=== PATIENT | female | born 1980 | race Caucasian/White ===

== ENCOUNTER → 2016-11-09 | Outpatient (CLI) | payer MEDICAID ==
--- NOTE | 2016-11-09 17:57 | RADIOLOGY REPORT (SQ) ---
EXAM DESCRIPTION: U/S [id number] TRNABD 1GES W/ODOP COMPLETED DATE/TIME: 11/09/2016 5:20 pm REASON FOR STUDY: ENCOUNTER FOR SUPERVISON OF NORMAL FIRST , FIRST TRIMESTER Z34.01 ENCNTR FOR SUPRVSN OF NORMAL FIRST PREG, FIRST TRIMES COMPARISON: None. TECHNIQUE: Transabdominal static and realtime grayscale images acquired of the pelvis. Additional se lected spectral and color Doppler images recorded. All images stored on PACs. CG: Not available. LIMITATIONS: None. FINDINGS: FETUS: Living intrauterine . EGA: 12 weeks 4 days ROSALIO: 05/20/2017 FHR: 157 beats per minute. SUBCHORIONIC BLEED: No SIZE OF BLEED: Not applicable. UTERUS: No masses, no anomalies. 12.1 x 8.8 x 7.6 cm. CERVICAL LENGTH: 3.7 cm. Closed. RIGHT ADNEXA: Right ovary measured 5.5 x 4.7 x 3.8 cm. There is a 3.9 x 4.2 x 3.3 cm cyst. No adnexal free fluid. No adnexal masses. LEFT ADNEXA: Ovary not seen. No adnexal free fluid. No adnexal masses. FREE FLUID: None. OTHER: No other significant finding. IMPRESSION: 1. Live intrauterine gestation of 12 weeks 4 days with an estimated date of delivery of 05/20/2017. 2. There is a 3.9 x 4.2 x 3.3 mm right ovarian cyst. Trimester of : First - 0 to 13 weeks. TECHNICAL DOCUMENTATION: JOB ID: [id number] [employer]- All Rights Reserved
== END ==
LOC: RAD 15:11
PROVIDERS: ATTEND Nurse Practitioner Women's Health
DX: Z34.01 Encounter for supervision of normal first pregnancy, first trimester (principal)
CPT/HCPCS: 76801

== ENCOUNTER 2017-04-01 12:04 | Emergency (ER) | payer MEDICAID ==
--- NOTE | 2017-04-01 12:32 | ER Document Report ---
ED Medical Screen (RME) - General Chief Complaint: Lower Abdominal Pain Stated Complaint: LEFT LOWER SIDE PAIN Time Seen by Provider: 04/01/17 12:23 TRAVEL OUTSIDE OF THE [place] IN LAST 30 DAYS: No - Related Data Allergies/Adverse Reactions: No Known Allergies Allergy (Verified 04/01/17 12:09) Physical Exam - Vital signs Vitals: Temp Pulse Resp BP Pulse Ox 98.2 F 75 18 114/54 L 99 04/01/17 12:13 04/01/17 12:13 04/01/17 12:13 04/01/17 12:13 04/01/17 12:13 Course - Vital Signs Vital signs: Temp Pulse Resp BP Pulse Ox 98.2 F 75 18 114/54 L 99 04/01/17 12:13 04/01/17 12:13 04/01/17 12:13 04/01/17 12:13 04/01/17 12:13
--- NOTE | 2017-04-01 12:35 | ER Document Report ---
ED General - General Chief Complaint: Lower Abdominal Pain Stated Complaint: LEFT LOWER SIDE PAIN Time Seen by Provider: 04/01/17 12:23 TRAVEL OUTSIDE OF THE [place] IN LAST 30 DAYS: No - HPI Patient complains to provider of: Left-sided abdominal pain Notes: 3 day history of sharp reproducible left-sided abdominal pain. Patient thinks she twisted a muscle at work. It is exacerbated with her turning to the right. It is 8/10 sharp in a chewable reproducible with palpation. Denies any nausea , vomiting, diarrhea, dysuria. Patient is still feeling the baby move a great deal. Patient denies any vaginal discharge or back pain. - Related Data Allergies/Adverse Reactions: No Known Allergies Allergy (Verified 04/01/17 12:09) Home Medications: Current Home Medications Vit Calc,Iron,Folic [ Vitamins] 1 tab PO DAILY 04/01/17 [ History] Past Medical History - Social History Smoking Status: Former Smoker Chew tobacco use (# tins/day): No Frequency of alcohol use: None Drug Abuse: None Family History: None Patient has suicidal ideation: No Patient has homicidal ideation: No Renal/ Medical History: Denies: Hx Peritoneal Dialysis Review of Systems - Review of Systems Gastrointestinal: Abdominal pain Physical Exam - Vital signs Vitals: Temp Pulse Resp BP Pulse Ox 98.2 F 75 18 114/54 L 99 04/01/17 12:13 04/01/17 12:13 04/01/17 12:13 04/01/17 12:13 04/01/17 12:13 Interpretation: Normal - General General appearance: Appears well, Alert - HEENT Head: Normocephalic, Atraumatic Eyes: Normal Pupils: PERRL - Respiratory Respiratory status: No respiratory distress Chest status: Nontender Breath sounds: Normal Chest palpation: Normal - Cardiovascular Rhythm: Regular Heart sounds: Normal auscultation Murmur: No - Abdominal Inspection: Normal Distension: No distension Bowel sounds: Normal Tenderness: Tender Organomegaly: No organomegaly Notes: Small bruise located over left side of abdomen. Patient does not recall hitting her stomach. - Back Back: Normal, Nontender - Extremities General upper extremity: Normal inspection, Nontender, Normal color, Normal ROM , Normal temperature General lower extremity: Normal inspection, Nontender, Normal color, Normal ROM , Normal temperature, Normal weight bearing. No: Goran's sign - Neurological Neuro grossly intact: Yes Cognition: Normal Orientation: AAOx4 [place] Coma Scale Eye Opening: Spontaneous [place] Coma Scale Verbal: Oriented [place] Coma Scale Motor: Obeys Commands [place] Coma Scale Total: 15 Speech: Normal Motor strength normal: LUE, RUE, LLE, RLE Sensory: Normal - Psychological Associated symptoms: Normal affect, Normal mood - Skin Skin Temperature: Warm Skin Moisture: Dry Skin Color: Normal Course - Re-evaluation Re-evalutation: 04/01/17 13:25 Well-appearing female presents with apparent musculoskeletal pain. Urine shows no signs of infection, contaminated sample. Will be sent for urine culture. Patient's heart tones recorded at 141. - Vital Signs Vital signs: Temp Pulse Resp BP Pulse Ox 97.6 F 70 18 119/66 99 04/01/17 13:50 04/01/17 13:50 04/01/17 13:50 04/01/17 13:50 04/01/17 13:50 - Laboratory Laboratory results interpreted by me: 04/01/17 13:02 Urine Urobilinogen 2.0 H Ur Leukocyte Esterase LARGE H Discharge - Discharge Clinical Impression: Muscle strain Condition: Stable Disposition: HOME, SELF-CARE Instructions: Muscle Strain ([facility]) Additional Instructions: call your SUPER[employer] today and see them tomorrow Referrals: ARMANDO BALBUENA MD [Primary Care Provider] - Follow up as needed
[2017-04-01 13:21] LABS: APPEARANCE,URINE CLOUDY; BILIRUBIN,URINE NEGATIVE (NEGATIVE); COLOR,URINE YELLOW; GLUCOSE, URINE NEGATIVE (NEGATIVE); KETONES,URINE NEGATIVE (NEGATIVE); LEUKOCYTE ESTERASE,URINE LARGE (NEGATIVE); NITRITE,URINE NEGATIVE (NEGATIVE); PROTEIN,URINE NEGATIVE (NEGATIVE)
[2017-04-01 13:53] VITALS: BP 119/66
== END 2017-04-01 13:51 | disposition home or self-care (01) ==
LOC: ER 12:04
DX: O9A.219 Injury, poisoning and certain other consequences of external causes complicating pregnancy, unspecified trimester (principal); T14.8XXA Other injury of unspecified body region, initial encounter; S30.1XXA Contusion of abdominal wall, initial encounter; R10.30 Lower abdominal pain, unspecified; X58.XXXA Exposure to other specified factors, initial encounter; Z3A.00 Weeks of gestation of pregnancy not specified
CPT/HCPCS: 81001; 99284

== ENCOUNTER 2017-04-29 10:22 | Outpatient (CLI) | payer MEDICAID | END 2017-04-29 11:08 | disposition home or self-care (01) | LOC: LC 10:22 | PROVIDERS: ATTEND Obstetrics & Gynecology Gynecology | PROC: 4A1HXCZ Monitoring of Products of Conception, Cardiac Rate, External Approach (ICD-10-PCS; principal; 2017-04-29) | DX: O36.5930 Maternal care for other known or suspected poor fetal growth, third trimester, not applicable or unspecified (principal); O09.523 Supervision of elderly multigravida, third trimester; Z3A.37 37 weeks gestation of pregnancy | CPT/HCPCS: 59025 ==

== ENCOUNTER 2017-05-14 12:15 | Inpatient (IN) | payer MEDICAID ==
[2017-05-14 12:56] LABS: APPEARANCE,URINE CLEAR; BILIRUBIN,URINE NEGATIVE (NEGATIVE); COLOR,URINE YELLOW; GLUCOSE, URINE NEGATIVE (NEGATIVE); KETONES,URINE NEGATIVE (NEGATIVE); LEUKOCYTE ESTERASE,URINE NEGATIVE (NEGATIVE); NITRITE,URINE NEGATIVE (NEGATIVE); PROTEIN,URINE NEGATIVE (NEGATIVE); URINE SPECIFIC GRAVITY 1.011
[2017-05-14] MEDS ORDERED: OXYTOCIN/NORMAL SALINE 20 UNIT/1,000 ML RTUINJ IV PRN ×2 (13:09→22:12)
[2017-05-14] MEDS ORDERED: RINGERS SOLUTION,LACTATED 300 ML IV ONE ×2 (13:09→13:12)
[2017-05-14] MEDS ORDERED: RINGERS SOLUTION,LACTATED 1,000 ML IV PRN (13:12)
[2017-05-14 13:14] LABS: URINE AMPHETAMINES SCREEN NEGATIVE; URINE BARBITURATES SCREEN NEGATIVE; URINE BENZODIAZEPINES SCREEN NEGATIVE; URINE COCAINE SCREEN NEGATIVE; URINE MARIJUANA (THC) SCREEN NEGATIVE; URINE METHADONE SCREEN NEGATIVE; URINE PHENCYCLIDINE SCREEN NEGATIVE
[2017-05-14 13:40] LABS: AMNISURE (ROM) NEGATIVE (NEGATIVE)
[2017-05-14 14:19] LABS: ABSOLUTE LYMPHOCYTES (AUTO) 1.7 10^3/uL (0.5-4.7); ABSOLUTE MONOCYTES (AUTO) 0.8 10^3/uL (0.1-1.4); ABSOLUTE NEUT (AUTO) 9.4 10^3/uL (1.7-8.2); BASOPHILS % (AUTO) 0.1 % (0-2); EOSINOPHILS % (AUTO) 0.4 % (0-6); HEMATOCRIT 37.7 % (36.0-47.0); HEMOGLOBIN 12.8 g/dL (12.0-15.5); LYMPHOCYTES % (AUTO) 14.3 % (13-45); MEAN CORPUSCULAR HEMOGLOBIN 30.4 pg (27.0-33.4); MEAN CORPUSCULAR VOLUME 90 fl (80-97); MONOCYTES % (AUTO) 6.9 % (3-13); PLATELET COUNT 265 10^3/uL (150-450); RED BLOOD COUNT 4.21 10^6/uL (3.72-5.28); RED CELL DISTRIBUTION WIDTH 13.3 % (11.5-14.0); SEGMENTED NEUTROPHILS % (AUTO) 78.3 % (42-78); TOTAL CELLS COUNTED % (AUTO) 100 %
--- NOTE | 2017-05-14 16:15 | L&D Progress Notes ---
PROGRESS NOTES Datetime Report Generated by CPN: 05/14/2017 16:14 PROGRESS NOTE Impression: Normal Progression of Labor; Reassuring Heart Rate Procedures: Artificial ROM; Sterile Vag Exam Plan: Continue Present Management; Induction Vital Signs : Reviewed Comment: Pt having more ctx, coping well AROM, clear Will start pitocin Pt may have epidural prn VAGINAL EXAM Dilatation: 2 Effacement: 25 Station: -3 Contractions: rare MEMBRANES Membranes: Ruptured Membranes: Bulging Amniotic Fluid Color: Clear FETUS A FHR - Baseline: 135 Monitoring: External US Variability: Moderate 6-25bpm Accelerations: 15X15 Decelerations: None FHR Category: Category I Estimated Weight (gm): 2400 Presentation: Vertex SIGNATURE SIGNATURE: [id number] Assignment: Izabela Cantu MD Signature: with User ID: [email or web address] : with User ID: [email or web address]
[2017-05-14] MEDS ORDERED: OXYTOCIN/NORMAL SALINE 0 UNIT/0 ML RTUINJ ONE (16:20)
[2017-05-14] MEDS ORDERED: OXYTOCIN/NORMAL SALINE 20 UNIT/1,000 ML RTUINJ ONE (16:21)
[2017-05-14] MEDS ORDERED: MISOPROSTOL 0.2 MG TABLET ONE (16:21)
[2017-05-14] MEDS ORDERED: LIDOCAINE 1% INJ-PF (10 MG/ML) 30 ML SDV ONE (16:21)
[2017-05-14] MEDS: RINGERS SOLUTION,LACTATED 1,000 ML IV PRN ×3 (16:29→20:22)
[2017-05-14] MEDS ORDERED: FENTANYL CITRATE INJ/PF 100 MCG/2 ML AMPUL ONE (18:15)
[2017-05-14] MEDS ORDERED: PHENYLEPHRINE HCL INJ/PF 10 MG/1 ML SDV ONE (18:16)
[2017-05-14] MEDS ORDERED: EPHEDRINE SULFATE INJ 50 MG/1 ML AMPULE ONE (18:16)
[2017-05-14] MEDS ORDERED: FENTANYL/BUPIVACAINE/NS/PF 200 MCG/100 ML RTUINJ EPI ONE (18:16)
[2017-05-14] MEDS ORDERED: BUPIVACAINE HCL 0.25 % INJ/PF (2.5 MG/1 ML) 30 ML VIAL ONE (18:16)
[2017-05-14] MEDS ORDERED: MISOPROSTOL 0.2 MG TABLET PR ONE (22:12)
[2017-05-14] MEDS ORDERED: ACETAMINOPHEN 325 MG TABLET PO PRN (22:12)
[2017-05-14] MEDS ORDERED: NA PHOS,M-B/NA PHOS,DI-BA (ADULT) 133 ML ENEMA PR PRN (22:12)
[2017-05-14] MEDS ORDERED: PROMETHAZINE HCL 25 MG TABLET PO PRN (22:12)
[2017-05-14] MEDS ORDERED: BENZOCAINE/MENTHOL AEROSOL SPRAY 56 ML TOP PRN (22:12)
[2017-05-14] MEDS ORDERED: ACETAMINOPHEN WITH CODEINE #3 TABLET PO PRN ×2 (22:12)
[2017-05-14] MEDS ORDERED: DIPHENHYDRAMINE HCL 25 MG CAPSULE PO PRN (22:12)
[2017-05-14] MEDS ORDERED: DIPH/PERTUSS(ACELL)/TETANUS VAC/PF 0.5 ML SYR (>=10YO) IM PRN (22:12)
[2017-05-14] MEDS ORDERED: PROMETHAZINE HCL 25 MG SUPP.RECT PR PRN (22:12)
[2017-05-14] MEDS ORDERED: PROMETHAZINE HCL INJ 25 MG/1 ML VIAL IV PRN (22:12)
[2017-05-14] MEDS ORDERED: MAGNESIUM HYDROXIDE SUSP 30 ML UDCUP PO PRN (22:12)
[2017-05-14] MEDS ORDERED: DIBUCAINE 1% OINTMENT 28 GM TP PRN (22:12)
[2017-05-14] MEDS ORDERED: GLYCERIN/WITCH HAZEL LEAF 1 EACH MED..PAD TP PRN (22:12)
[2017-05-14] MEDS ORDERED: MEASLES,MUMPS&RUBELLA VACC/PF 0.5 ML VIAL SUBCUT PRN (22:12)
[2017-05-14] MEDS ORDERED: PSEUDOEPHEDRINE HCL 30 MG TABLET PO PRN (22:12)
[2017-05-14] MEDS ORDERED: ZOLPIDEM TARTRATE 5 MG TABLET PO PRN (22:12)
--- NOTE | 2017-05-14 22:37 | Delivery Summary ---
Del Sum A-C Datetime Report Generated by CPN: 05/14/2017 22:36 DELIVERY PERSONNEL DELIVERY PERSONNEL: [id number] Delivery Doctor:: Izabela Cantu MD Labor and Delivery Nurse:: Opal Rosales RNrecreation worker Nurse:: Greta Recinos RN Felt Checker/PERSONNEL ADMINISTRATOR: Joycelyn Rosegerald, ST MATERNAL INFORMATION Delivery Anesthesia: Epidural Medications After Delivery: Pitocin Drip 20 Units/1000ml NSS; Other-Please Comment Meds After Delivery Comment: Cytotec 1000 mcg [place] Estimated Blood Loss (ml): 300 Maternal Complications: Other Other Maternal Complications: iugr 7th percentile Provider Comments: VFI delivered in Direct OA presentation. No nuchal cord. Shoulders and body delivered without difficulty. Cord doubly clamped and cut and to maternal abdomen for NRP. Placenta delivered intact. Perineal laceration repaired in usual fashion. FF at U-1. Good hemostasis. Mother and baby stable upon provider leaving the room. Apgars 8/9. Weight pending. LABOR SUMMARY EDC: 05/20/2017 00:00 No. Babies in Womb: 1 Attempted: No Labor Anesthesia: Epidural LABOR INFORMATION Reason for Induction: Intrauterine Growth Retardation Onset of Labor: 05/14/2017 16:08 Complete Dilatation: 05/14/2017 21:00 Oxytocin: Induction Group B Beta Strep: Negative Antibiotics # of Doses: 0 Antibiotics Time of Last Dose: n/a Name of Antibiotic Given: n/a Steroids Given: None Reason Steroids Not Administered: Not Applicable MEMBRANES Membranes Rupture Method: Artificial Rupture of Membranes: 05/14/2017 16:08 Length of Rupture (hr): 5.57 Amniotic Fluid Color: Clear Amniotic Fluid Amount: Small Amniotic Fluid Odor: Normal STAGES OF LABOR Stage 1 hr: 4 Stage 1 min: 52 Stage 2 hr: 0 Stage 2 min: 42 Stage 3 hr: 0 Stage 3 min: 3 Total Time in Labor hr: 5 Total Time in Labor min: 37 VAGINAL DELIVERY Episiotomy: None Laceration #1: Perineal Laceration Extension #1: First Degree Laceration #2: Vaginal Laceration Extension #2: N/A Laceration Repair: Yes Laceration Repair Note: Left labial laceration and 1st degree midline laceration repaired in usual fashion. Sponge Count Correct: Yes Sharps Count Correct: Yes CSECTION DELIVERY Primary Indication: N/A Secondary Indication: N/A CSection Incidence: N/A Labor: N/A Elective: N/A CSection Incision: N/A BABY A INFORMATION Infant Delivery Date/Time: 05/14/2017 21:42 Method of Delivery: Vaginal Born in Route : No : N/A Forceps: N/A Vacuum Extraction: N/A Shoulder Dystocia : No PRESENTATION/POSITION BABY A Presentation: Cephalic Cephalic Presentation: Vertex Vertex Position: OA Breech Presentation: N/A PLACENTA INFORMATION BABY A Placenta Delivery Time : 05/14/2017 21:45 Placenta Method of Delivery: Spontaneous Placenta Status: Delivered SCORES BABY A Heart Rate 1 min: >100 bpm Resp Effort 1 min: Good Cry Reflex Irritability 1 min: Cough or Sneeze or Pulls Away Muscle Tone 1 min: Active Motion Color 1 min: Blue/Pale Resuscitation Effort 1 min: Tactile Stimulation SCORE 1 MIN: 8 Heart Rate 5 min: >100 bpm Resp Effort 5 min: Good Cry Reflex Irritability 5 min: Cough or Sneeze or Pulls Away Muscle Tone 5 min: Active Motion Color 5 min: Body Mina, Extremities Blue Resuscitation Effort 5 min: Tactile Stimulation SCORE 5 MIN: 9 INFANT INFORMATION BABY A Gestational Age at Delivery: 39.1 Gestational Status: Full Term- 39- 40.6 Weeks Infant Outcome : Liveborn Condition : Stable Infant Sex: Female IDENTIFICATION BABY A Infant Verification Date/Time: 05/14/2017 21:55 ID Band Number: [id number] Mother's Name Verified: Yes Infant RN Verifying Infant: Shayla RecinosLaure RN Additional Verifying Personnel: Kayla Griggs CNA WEIGHT/LENGTH BABY A Infant Birthweight (gm): 2900 Infant Weight (lb): 6 Weight (oz): 6 Length (in): 19.50 Length (cm): 49.53 CORD INFORMATION BABY A No. Cord Vessels: 3 Nuchal Cord : N/A Cord Blood Taken: Yes-For Eval (Mom's Blood Type - or O+) Suction: Mouth ASSESSMENT BABY A Complications: None Physical Findings at Delivery: Within Normal Limits Infant Respirations: Appears Normal Skin to Skin: Yes Assistant Teacher Primary/ALS Called : No Care By: AIlya, Rn Transferred To: Remains with Mother BABY B INFORMATION : N/A SIGNATURES Signature: with User ID: [email or web address]
--- NOTE | 2017-05-14 23:49 | Admission Physical ---
Datetime Report Generated by CPN: 05/14/2017 23:49 CURRENT ADMISSION Hx Assessment: The History has been Reviewed and is Current Chief Complaint: Sent from OB Office for Evaluation and Treatment - Please Specify Indication for Induction: IUGR Indication for Induction: Term, Intrauterine ; No Active Labor; Induction of Labor Indication for Induction- Other: low elyssa Admit Plan: Admit to Unit; Initiate Labor Induction Protocol ALLERGIES Medication Allergies: No Medication Allergies: No Known Allergies (04/29/2017) Medication Allergies: No Known Allergies (04/01/2017) Latex: No Latex Allergies Food Allergies: N/A Environmental Allergies: N/A OBSTETRICAL HISTORY EDC: 05/20/2017 00:00 : 1 Para: 0 Gestational Diabetes: No Rh Sensitization: No Incompetent Cervix: No MADDY: No Infertility: No ART Treatment: No Uterine Anomaly: No IUGR: No Hx Previous C/S: No Macrosomia: No Hx Loss/Stillborn: No PIH: No Hx : No Placenta Previa/Abruption: No Depression/PP Depression: No PTL/PROM: No Post Hemorrhage: No Current Procedures: Ultrasound; NST Obstetrical History Comments: G1 - Current SEE RECORDS Alcohol: No Marijuana : No Cocaine: No Other Illicit Drugs: No Cigarettes: Former Smoker. [id number] Advised to Stop: Yes Cigarette Comments: Stopped once she found out she was MEDICAL HISTORY Diabetes: No Blood Transfusion: No Pulmonary Disease (Asthma, TB): No Breast Disease: No Hypertension: No Tile Shader Surgery: No Heart Disease: No Hosp/Surgery: No Autoimmune Disorder: No Anesthetic Complications: No Kidney Disease: No Abnormal Pap Smear: No Neuro/Epilepsy: No Psychiatric Disorders: No Other Medical Diseases: No Hepatitis/Liver Disease: No Significant Family History: No Varicosities/Phlebitis: No Trauma/Violence : No Thyroid Dysfunction: No INFECTIOUS HISTORY Gonorrhea: No Genital Herpes: No Chlamydia: No Tuberculosis: No Syphilis: No Hepatitis: No HIV/AIDS Exposure: No Rash or Viral Illness: No HPV: No PHYSICAL EXAM General: Normal HEENT: Normal Neurologic: Normal Thyroid: Normal Heart: Normal Lungs: Normal Breast: Normal Back: Normal Abdomen: Normal Genitourinary Exam: Normal Extremities: Normal DTRs: Normal Pelvic Type: Adequate Vital Signs: Reviewed VAGINAL EXAM Dilatation: 2 Effacement: 25 Station: -3 Contraction Comments: rare MEMBRANES Membranes: Ruptured Membranes: Bulging Amniotic Fluid Color: Clear FETUS A EGA: 39.1 Monitoring: External US FHR- Baseline: 135 Variability: Moderate 6-25bpm Accelerations: 15X15 Decelerations: None FHR Category: Category I Estimated Weight (gm): 2400 Presentation: Vertex Admit Comment: Admit to L _ D, denies leaking, bleeding, states active baby, rare ctx. ELYSSA 5 today in the office, amnisure pending. Growth 10% AMA, care started at [facility], RH negative Plan for seo bulb and pitocin. PLANS FOR LABOR AND DELIVERY Labor and Delivery: None Pain Management: Epidural Feeding Preference: Breast Benefit of Breast Feed Discussed: Yes Circumcision: N/A INFORMED CONSENT Assignment: Izabela Cantu MD Signature: with User ID: [email or web address] : with User ID: [email or web address]
[2017-05-15] MEDS: IBUPROFEN 800 MG TABLET PO SCH ×3 (05:48→22:48)
[2017-05-15 08:10] LABS: HEMATOCRIT 32.6 % (36.0-47.0); HEMOGLOBIN 11.2 g/dL (12.0-15.5); MEAN CORPUSCULAR HEMOGLOBIN 30.7 pg (27.0-33.4); MEAN CORPUSCULAR HGB CONC 34.3 g/dL (32.0-36.0); MEAN CORPUSCULAR VOLUME 90 fl (80-97); PLATELET COUNT 210 10^3/uL (150-450); RED BLOOD COUNT 3.64 10^6/uL (3.72-5.28); RED CELL DISTRIBUTION WIDTH 13.2 % (11.5-14.0); WHITE BLOOD COUNT 17.1 10^3/uL (4.0-10.5)
--- NOTE | 2017-05-15 08:43 | PDOC PROGRESS REPORT ---
Subjective-OB Progress Note for:: 05/15/17 Subjective: pp day #1 s/p Lochia is stable, pain well controlled, seo in situ d/t urinary retention, bonding well and baby. Physical Exam (OB) Vital Signs: Temp Pulse Resp BP Pulse Ox 98.2 F 71 16 114/59 L 99 05/14/17 23:56 05/14/17 23:56 05/14/17 23:56 05/14/17 23:56 05/14/17 23:56 Intake & Output 05/14/17 05/15/17 05/16/17 06:59 06:59 06:59 Intake Total 2000 Output Total 2650 Balance -650 Weight 87.4 kg - Lochia Lochia Amount: Small 10-25 ml Lochia Color: Rubra/Red - Abdomen Description: Soft, Round Hernia Present: No Fundal Description: Firm, Midline Fundal Height: u/u - u/2 Objective-Diagnostic Laboratory: 05/15/17 07:34 05/14/17 05/14/17 05/14/17 12:26 13:47 13:47 WBC 12.0 H RBC 4.21 Hgb 12.8 Hct 37.7 MCV 90 MCH 30.4 MCHC 34.0 RDW 13.3 Plt Count 265 Seg Neutrophils % 78.3 H Lymphocytes % 14.3 Monocytes % 6.9 Eosinophils % 0.4 Basophils % 0.1 Absolute Neutrophils 9.4 H Absolute Lymphocytes 1.7 Absolute Monocytes 0.8 Absolute Eosinophils 0.0 Absolute Basophils 0.0 Urine Color YELLOW Urine Appearance CLEAR Urine pH 7.0 Ur Specific [place] 1.011 Urine Protein NEGATIVE Urine Glucose (UA) NEGATIVE Urine Ketones NEGATIVE Urine Blood SMALL H Urine Nitrite NEGATIVE Ur Leukocyte Esterase NEGATIVE Urine WBC (Auto) 1 Urine RBC (Auto) 0 Blood Type O NEGATIVE Antibody Screen POSITIVE 05/15/17 07:34 WBC 17.1 H RBC 3.64 L Hgb 11.2 L Hct 32.6 L MCV 90 MCH 30.7 MCHC 34.3 RDW 13.2 Plt Count 210 Seg Neutrophils % Lymphocytes % Monocytes % Eosinophils % Basophils % Absolute Neutrophils Absolute Lymphocytes Absolute Monocytes Absolute Eosinophils Absolute Basophils Urine Color Urine Appearance Urine pH Ur Specific [place] Urine Protein Urine Glucose (UA) Urine Ketones Urine Blood Urine Nitrite Ur Leukocyte Esterase Urine WBC (Auto) Urine RBC (Auto) Blood Type Antibody Screen Assessment and Plan(PN) - Assessment and Plan (1) First degree laceration of perineum, delivered, current hospitalization Is this a current diagnosis for this admission?: Yes Plan: routine pericare (2) Intrauterine growth restriction (IUGR) affecting care of mother Qualifiers: Fetus number: single or unspecified fetus Trimester: third trimester Qualified Code(s): O36.5930 - Maternal care for other known or suspected poor growth, third trimester, not applicable or unspecified Is this a current diagnosis for this admission?: Yes Plan: delivered appropriate peds follow up (3) Obstetric labial laceration, delivered, current hospitalization Is this a current diagnosis for this admission?: Yes Plan: kian care (4) Urinary retention Is this a current diagnosis for this admission?: Yes Plan: seo to be d/c tomorrow morning (5) Vaginal delivery Is this a current diagnosis for this admission?: Yes Plan: routine pp care - Time Spent with Patient Time with patient: Less than 15 minutes Critical Time spent with patient: Less than 15 minutes Medications reviewed and adjusted accordingly: Yes - Disposition Anticipated Discharge: Home Within: within 24 hours
[2017-05-15] MEDS: SENNOSIDES/DOCUSATE 8.6-50 MG 1 EACH TABLET PO SCH (10:35)
[2017-05-15] MEDS: FERROUS SULFATE 325 MG TABLET PO SCH ×2 (10:36→18:35)
[2017-05-15] MEDS: PRENATAL VITAMIN W DHA CAPSULE PO SCH (10:36)
[2017-05-15] MEDS: FAMOTIDINE 20 MG TABLET PO SCH ×2 (10:36→22:48)
[2017-05-15] MEDS: DOCUSATE SODIUM 100 MG CAPSULE PO SCH ×2 (10:36→18:34)
[2017-05-15 21:33] VITALS: BP 123/67
[2017-05-16] MEDS: IBUPROFEN 800 MG TABLET PO SCH (05:33)
--- NOTE | 2017-05-16 08:50 | PDOC PROGRESS REPORT ---
Subjective-OB Progress Note for:: 05/16/17 Subjective: PP day # 2 Pt is doing well, seo just removed, due to void, lochia is stable, pain well controlled, bonding well with baby, pt would like to go home. Physical Exam (OB) Vital Signs: Temp Pulse Resp BP Pulse Ox 98.3 F 87 16 123/67 98 05/15/17 20:10 05/15/17 20:10 05/15/17 20:10 05/15/17 20:10 05/15/17 20:10 Intake & Output 05/15/17 05/16/17 05/17/17 06:59 06:59 06:59 Intake Total 2000 1000 Output Total 2650 3550 Balance -650 -2550 Weight 87.4 kg - PIH/Pre-Eclampsia DTR's: 1 + Clonus: Negative Headache: Absent Epigastric Pain: No Visual Changes: No - Lochia Lochia Amount: Small 10-25 ml Lochia Color: Rubra/Red - Abdomen Description: Soft, Round Hernia Present: No Fundal Description: Firm, Midline Fundal Height: u/u - u/2 Objective-Diagnostic Laboratory: 05/15/17 07:34 05/15/17 07:34 Blood Type O NEGATIVE Assessment and Plan(PN) - Assessment and Plan (1) First degree laceration of perineum, delivered, current hospitalization Is this a current diagnosis for this admission?: Yes Plan: routine pp care (2) Intrauterine growth restriction (IUGR) affecting care of mother Qualifiers: Fetus number: single or unspecified fetus Trimester: third trimester Qualified Code(s): O36.5930 - Maternal care for other known or suspected poor growth, third trimester, not applicable or unspecified Is this a current diagnosis for this admission?: Yes Plan: n/a (3) Obstetric labial laceration, delivered, current hospitalization Is this a current diagnosis for this admission?: Yes Plan: routine pp care (4) Urinary retention Is this a current diagnosis for this admission?: Yes Plan: seo removed d/t void (5) Vaginal delivery Is this a current diagnosis for this admission?: Yes Plan: may cancel d/c if pt is unable to void - Time Spent with Patient Time with patient: Less than 15 minutes Critical Time spent with patient: Less than 15 minutes Medications reviewed and adjusted accordingly: Yes - Disposition Anticipated Discharge: Home Within: within 24 hours
--- NOTE | 2017-05-16 08:55 | PDOC DISCHARGE SUMMARY ---
Final Diagnosis Discharge Date: 05/16/17 - Final Diagnosis (1) First degree laceration of perineum, delivered, current hospitalization Is this a current diagnosis for this admission?: Yes (2) Intrauterine growth restriction (IUGR) affecting care of mother Is this a current diagnosis for this admission?: Yes (3) Obstetric labial laceration, delivered, current hospitalization Is this a current diagnosis for this admission?: Yes (4) Urinary retention Is this a current diagnosis for this admission?: Yes (5) Vaginal delivery Is this a current diagnosis for this admission?: Yes Discharge Data - Discharge Medication Prescriptions: Acetaminophen with Codeine [Tylenol #3 Tablet] 2 each PO Q4HP PRN #14 tablet PRN Reason: Docusate Sodium [Colace 100 mg Capsule] 100 mg PO BID #60 capsule Ibuprofen [Motrin 800 mg Tablet] 800 mg PO Q8 #60 tablet Home Medications: Vit Calc,Iron,Folic [ Vitamins] 1 tab PO DAILY 04/01/17 Acetaminophen with Codeine [Tylenol #3 Tablet] 2 each PO Q4HP PRN #14 tablet Docusate Sodium [Colace 100 mg Capsule] 100 mg PO BID #60 capsule 05/16/17 Ibuprofen [Motrin 800 mg Tablet] 800 mg PO Q8 #60 tablet 05/16/17 Gestational Age: 39.1 Reason(s) for Admission: Induction of Labor, Other - iugr 7% Procedures: NST Intrapartum Procedure(s): Spontaneous Vaginal Delivery Complication(s): Laceration-Labial, Other - urinary retention - Diagnosis Test Laboratory: Temp Pulse Resp BP Pulse Ox 98.3 F 87 16 123/67 98 05/15/17 20:10 05/15/17 20:10 05/15/17 20:10 05/15/17 20:10 05/15/17 20:10 05/14/17 05/14/17 05/15/17 12:26 13:47 07:34 RBC 4.21 3.64 L Hgb 12.8 11.2 L Hct 37.7 32.6 L Urine Opiates Screen NEGATIVE - Discharge information/Instructions Discharge Activity: Activity As Tolerated, Pelvic Rest, No tub bath Discharge Diet: Regular Disposition: HOME, SELF-CARE Follow [facility] with: [facility] in: 4, Weeks
[2017-05-16] MEDS: PRENATAL VITAMIN W DHA CAPSULE PO SCH (09:40)
[2017-05-16] MEDS: DOCUSATE SODIUM 100 MG CAPSULE PO SCH (09:41)
[2017-05-16] MEDS: SENNOSIDES/DOCUSATE 8.6-50 MG 1 EACH TABLET PO SCH (09:41)
[2017-05-16] MEDS: FAMOTIDINE 20 MG TABLET PO SCH (09:41)
[2017-05-16] MEDS: FERROUS SULFATE 325 MG TABLET PO SCH (09:41)
== END 2017-05-16 13:25 | disposition home or self-care (01) | DRG 775 ==
LOC: LC 12:15 → LR 15:22 → 2S 23:47
PROVIDERS: ADMIT Student in an Organized Health Care Education/Training Program; ATTEND Student in an Organized Health Care Education/Training Program
PROC: 10E0XZZ Delivery of Products of Conception, External Approach (ICD-10-PCS; principal; 2017-05-14)
PROC: 0HQ9XZZ Repair Perineum Skin, External Approach (ICD-10-PCS; 2017-05-14)
PROC: 4A1HXCZ Monitoring of Products of Conception, Cardiac Rate, External Approach (ICD-10-PCS; 2017-05-14)
DX: O36.5930 Maternal care for other known or suspected poor fetal growth, third trimester, not applicable or unspecified (principal); O70.0 First degree perineal laceration during delivery; Z37.0 Single live birth; Z3A.39 39 weeks gestation of pregnancy; R33.9 Retention of urine, unspecified; O75.89 Other specified complications of labor and delivery; Z87.891 Personal history of nicotine dependence
CPT/HCPCS: 36415; 80307; 81001; 84112; 85025; 85027; 85461; 86592; 86850; 86870; 86900; 86901; 88307; J2370; J2590; J2790; J3010; J3490; Q0114

== ENCOUNTER 2017-08-31 08:00 | Emergency (ER) | payer MEDICAID ==
[2017-08-31 09:40] LABS: ABSOLUTE BASOPHILS # (AUTO) 0.1 10^3/uL (0.0-0.2); ABSOLUTE EOSINOPHILS # (AUTO) 0.2 10^3/uL (0.0-0.6); ABSOLUTE LYMPHOCYTES (AUTO) 1.3 10^3/uL (0.5-4.7); ABSOLUTE MONOCYTES (AUTO) 0.9 10^3/uL (0.1-1.4); ABSOLUTE NEUT (AUTO) 9.3 10^3/uL (1.7-8.2); BASOPHILS % (AUTO) 0.6 % (0-2); EOSINOPHILS % (AUTO) 1.5 % (0-6); HEMATOCRIT 39.2 % (36.0-47.0); HEMOGLOBIN 13.4 g/dL (12.0-15.5); LYMPHOCYTES % (AUTO) 10.8 % (13-45); MEAN CORPUSCULAR HEMOGLOBIN 28.8 pg (27.0-33.4); MEAN CORPUSCULAR HGB CONC 34.2 g/dL (32.0-36.0); MEAN CORPUSCULAR VOLUME 84 fl (80-97); MONOCYTES % (AUTO) 7.6 % (3-13); PLATELET COUNT 373 10^3/uL (150-450); RED BLOOD COUNT 4.67 10^6/uL (3.72-5.28); RED CELL DISTRIBUTION WIDTH 12.8 % (11.5-14.0); SEGMENTED NEUTROPHILS % (AUTO) 79.5 % (42-78); TOTAL CELLS COUNTED % (AUTO) 100 %; WHITE BLOOD COUNT 11.7 10^3/uL (4.0-10.5)
[2017-08-31 09:46] LABS: APPEARANCE,URINE CLEAR; BILIRUBIN,URINE NEGATIVE (NEGATIVE); COLOR,URINE YELLOW; GLUCOSE, URINE NEGATIVE (NEGATIVE); KETONES,URINE NEGATIVE (NEGATIVE); LEUKOCYTE ESTERASE,URINE NEGATIVE (NEGATIVE); NITRITE,URINE NEGATIVE (NEGATIVE); PROTEIN,URINE NEGATIVE (NEGATIVE); URINE SPECIFIC GRAVITY 1.004; UROBILINOGEN,URINE NEGATIVE mg/dL (<2.0)
[2017-08-31 10:02] LABS: ALANINE AMINOTRANSFERASE 43 U/L (9-52); ALBUMIN 4.2 g/dL (3.5-5.0); ALKALINE PHOSPHATASE 118 U/L (38-126); ANION GAP 14 (5-19); ASPARTATE AMINO TRANSFERASE 18 U/L (14-36); BILIRUBIN,DIRECT 0.3 mg/dL (0.0-0.4); BILIRUBIN,TOTAL 0.7 mg/dL (0.2-1.3); BLOOD UREA NITROGEN 13 mg/dL (7-20); C-REACTIVE PROTEIN 26.4 mg/L (<10.0); CALCIUM 9.6 mg/dL (8.4-10.2); CARBON DIOXIDE 23 mmol/L (22-30); CHLORIDE 104 mmol/L (98-107); GLUCOSE 87 mg/dL (75-110); POTASSIUM 4.1 mmol/L (3.6-5.0); SODIUM 140.7 mmol/L (137-145); TOTAL PROTEIN 7.4 g/dL (6.3-8.2)
[2017-08-31 10:27] LABS: ERYTHROCYTE SEDIMENTATION RATE 65 mm/hr (0-20)
--- NOTE | 2017-08-31 11:02 | ER Document Report ---
ED Extremity Problem, Lower - General Chief Complaint: Ankle Swelling Stated Complaint: SWOLLEN ANKLES AND WRIST Time Seen by Provider: 08/31/17 08:54 Mode of Arrival: Ambulatory Information source: Patient Notes: Patient is a 37-year-old female 3 months from normal vaginal delivery of a healthy baby who presents to the ER today for 1 week of swelling to her ankles bilaterally. 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 She admits to pain in the ankles as well. She denies any injury. She denies any history of autoimmune disease or any family history that she knows of of autoimmune disease. Patient has not seen anyone for this. She denies any history of kidney disease or heart disease. She denies any joint pain anywhere else or swelling. TRAVEL OUTSIDE OF THE [place] IN LAST 30 DAYS: No - Related Data Allergies/Adverse Reactions: No Known Allergies Allergy (Verified 04/29/17 10:41) Past Medical History - General Information source: Patient - Social History Smoking Status: Never Smoker Chew tobacco use (# tins/day): No Frequency of alcohol use: Occasional Drug Abuse: None Family History: None Patient has suicidal ideation: No Patient has homicidal ideation: No Renal/ Medical History: Denies: Hx Peritoneal Dialysis Review of Systems - Review of Systems Constitutional: No symptoms reported EENT: No symptoms reported Cardiovascular: No symptoms reported Respiratory: No symptoms reported Gastrointestinal: No symptoms reported Genitourinary: No symptoms reported Female Genitourinary: No symptoms reported Musculoskeletal: See HPI Skin: See HPI Hematologic/Lymphatic: No symptoms reported Neurological/Psychological: No symptoms reported Physical Exam - Vital signs Vitals: Temp Pulse Resp BP Pulse Ox 97.9 F 94 18 122/66 99 08/31/17 08:06 08/31/17 08:06 08/31/17 08:06 08/31/17 08:06 08/31/17 08:06 - Notes Notes: PHYSICAL EXAMINATION: GENERAL: Well-appearing, feeding her in her arms, and in no acute distress. HEAD: Atraumatic, normocephalic. EYES: Pupils equal round and reactive to light, extraocular movements intact, sclera anicteric, conjunctiva are normal. NECK: Normal range of motion, supple without lymphadenopathy LUNGS: CTAB and equal. No wheezes rales or rhonchi. HEART: Regular rate and rhythm without murmurs ABDOMEN: Soft, no tenderness. No guarding, no rebound BACK: no vertebral tenderness, normal ROM GI/: no CVA tenderness EXTREMITIES: Normal range of motion, 1+ pitting edema bilateral ankles. No cyanosis. NEUROLOGICAL: Cranial nerves grossly intact. Normal sensory/motor exams. PSYCH: Normal mood, normal affect. SKIN: Warm, Dry, normal turgor, see extremities above Course - Re-evaluation Re-evalutation: 08/31/17 19:05 Sed rate and CRP are elevated, otherwise workup is unremarkable today with negative rheumatoid factor and white blood cell count normal. Patient be placed on Medrol Dosepak and given rheumatology information to follow-up with. Patient also advised to continue to elevate at home as it is helping. - Vital Signs Vital signs: Temp Pulse Resp BP Pulse Ox 98.0 F 76 16 117/75 99 08/31/17 11:02 08/31/17 11:02 08/31/17 11:02 08/31/17 11:02 08/31/17 11:02 - Laboratory Result Diagrams: 08/31/17 09:28 08/31/17 09:28 Laboratory results interpreted by me: 08/31/17 08/31/17 09:28 09:28 WBC 11.7 H Seg Neutrophils % 79.5 H Lymphocytes % 10.8 L Absolute Neutrophils 9.3 H ESR 65 H C-Reactive Protein 26.4 H Discharge - Discharge Clinical Impression: Swelling of both ankles Condition: Stable Disposition: HOME, SELF-CARE Additional Instructions: Return immediately for any new or worsening symptoms. Follow up with rheumatology, call tomorrow to make followup appointment. [facility] [address] [place] [address] [id number] Prescriptions: Methylprednisolone [Medrol Dosepack (4 mg/Tab) 21 Tab/Dosepak] 4 mg PO ASDIR PRN #21 tab.ds.pk PRN Reason:
[2017-08-31 11:07] VITALS: BP 117/75
== END 2017-08-31 11:04 | disposition home or self-care (01) ==
LOC: ER 08:00
DX: M25.471 Effusion, right ankle (principal); M25.472 Effusion, left ankle; M25.571 Pain in right ankle and joints of right foot; M25.572 Pain in left ankle and joints of left foot; R79.82 Elevated C-reactive protein (CRP)
CPT/HCPCS: 36415; 80053; 81001; 81025; 83880; 85025; 85652; 86140; 86430; 99283